=== PATIENT | female | born 1975 | race Caucasian/White ===

== ENCOUNTER 2020-11-17 13:03 | Inpatient (IN) | payer BC ==
[~2020-11-17] VITALS: Ht 160 cm; Wt 90.4 kg
[2020-11-17 16:46] LABS: HEMOGLOBIN 11.7 gm/dl (12.3-15.3); RED BLOOD COUNT 3.97 M/UL (4.00-5.10)
[2020-11-17 17:07] LABS: BUN/CREATININE RATIO 13 (0-10)
[2020-11-18 02:19] LABS: HEMOGLOBIN 12.5 gm/dl (12.3-15.3); RED BLOOD COUNT 4.22 M/UL (4.00-5.10); WHITE BLOOD COUNT 3.4 K/UL (4.5-11.0)
[2020-11-18 02:52] LABS: BUN/CREATININE RATIO 17 (0-10)
[2020-11-18] MEDS ORDERED: ATORVASTATIN CA10 MG PO (11:31)
[2020-11-18] MEDS ORDERED: AMLODIPINE BESY10 MG PO (11:31)
[2020-11-18] MEDS ORDERED: PROPRANOLOL HCL10 MG PO (11:32)
[2020-11-18] MEDS ORDERED: VENLAFAXINE HCL75 M2 PO (11:32)
[2020-11-18] MEDS ORDERED: LISINOPRIL40 MG PO (11:33)
[2020-11-18] MEDS ORDERED: ASPIRIN CHEWABL81 MG PO (11:33)
[2020-11-18] MEDS ORDERED: AMLODIPINE-BEN1 EAC3 PO (11:34)
[2020-11-18] MEDS ORDERED: HYDRALAZINE HCL25 MG PO (11:35)
[2020-11-18] MEDS ORDERED: IBUPROFEN200 MG PO (11:36)
[2020-11-19 02:59] LABS: HEMOGLOBIN 12.8 gm/dl (12.3-15.3); RED BLOOD COUNT 4.3 M/UL (4.00-5.10); WHITE BLOOD COUNT 3.2 K/UL (4.5-11.0)
[2020-11-19 03:16] LABS: BUN/CREATININE RATIO 32 (0-10)
--- NOTE | 2020-11-19 20:56 | NUR ---
1800 CHART REVIEW WAS NOT COMPLETED ON DAY SHIFT
[2020-11-20 08:39] LABS: HEMOGLOBIN 13.2 gm/dl (12.3-15.3); RED BLOOD COUNT 4.52 M/UL (4.00-5.10)
[2020-11-20 08:40] LABS: WHITE BLOOD COUNT 7.3 K/UL (4.5-11.0)
[2020-11-20 09:04] LABS: BUN/CREATININE RATIO 27 (0-10)
[2020-11-20] MEDS ORDERED: OMNICEF 300 MG300 MG PO (10:15)
[2020-11-20] MEDS ORDERED: VENTOLIN HFA 66.7 GM INH (10:15)
[2020-11-20] MEDS ORDERED: DECADRON6 MG PO (10:15)
[2020-11-20] MEDS ORDERED: AZITHROMYCIN250 MG PO (10:15)
--- NOTE | 2020-11-20 11:14 | NUR ---
PTS O2 WITHOUT OXYGEN WAS 86
== END 2020-11-20 16:39 | disposition home or self-care (01) | DRG 177 ==
LOC: ER1 13:03 → CDU 19:23 → M/S 11-19 00:09
PROVIDERS: Internal Medicine; Physician Assistant Medical; ADMIT Internal Medicine
PROC: 3E0333Z Introduction of Anti-inflammatory into Peripheral Vein, Percutaneous Approach (ICD-10-PCS; 2020-11-17)
PROC: XW033E5 Introduction of Remdesivir Anti-infective into Peripheral Vein, Percutaneous Approach, New Technology Group 5 (ICD-10-PCS; 2020-11-17)
PROC: 8E0ZXY6 Isolation (ICD-10-PCS; principal; 2020-11-18)
PROC: XW033H6 Introduction of Other New Technology Monoclonal Antibody into Peripheral Vein, Percutaneous Approach, New Technology Group 6 (ICD-10-PCS; 2020-11-18)
DX: U07.1 COVID-19 (principal); J12.82 Pneumonia due to coronavirus disease 2019; J96.01 Acute respiratory failure with hypoxia; I10 Essential (primary) hypertension; E87.6 Hypokalemia; F39 Unspecified mood [affective] disorder; E66.9 Obesity, unspecified; Z90.49 Acquired absence of other specified parts of digestive tract; Z90.710 Acquired absence of both cervix and uterus; Z79.82 Long term (current) use of aspirin; Z79.899 Other long term (current) drug therapy; Z68.35 Body mass index [BMI] 35.0-35.9, adult
CPT/HCPCS: 36415; 36600; 71045; 80048; 80053; 82803; 83605; 83735; 84132; 85025; 85027; 85379; 86140; 87040; 94640; 94760; 99285; G0378; J0456; J0696; J1100; J1650; J7030; J7050; U0002